=== PATIENT | female | born 1960 | race Hispanic/Latino ===

== ENCOUNTER 2018-12-02 05:12 | Emergency (ER) | payer MEDICARE | END 2018-12-02 05:31 | disposition home or self-care (01) | LOC: EDH 05:12 | DX: Z02.83 Encounter for blood-alcohol and blood-drug test (principal); F41.0 Panic disorder [episodic paroxysmal anxiety]; F32.9 Major depressive disorder, single episode, unspecified; E78.00 Pure hypercholesterolemia, unspecified; M81.0 Age-related osteoporosis without current pathological fracture; Z91.018 Allergy to other foods; Z88.0 Allergy status to penicillin; Z88.6 Allergy status to analgesic agent ==

== ENCOUNTER 2021-06-04 14:17 | Emergency (ER) | payer MEDICARE ==
[~2021-06-04] VITALS: Ht 162.6 cm; Wt 59.4 kg
[2021-06-04 17:35] VITALS: BP 170/91
[2021-06-04] MEDS ORDERED: ACET-66 PO (17:39)
[2021-06-04] MEDS ORDERED: CYCL5TAB PO (17:39)
[2021-06-04] MEDS ORDERED: ACETAMINOPHEN WITH CODEINE 1 TAB TAB PO ONE (18:00)
== END 2021-06-04 17:46 | disposition home or self-care (01) ==
LOC: EDH 14:17
DX: S40.011A Contusion of right shoulder, initial encounter (principal); Z88.0 Allergy status to penicillin; Z88.6 Allergy status to analgesic agent; W01.0XXA Fall on same level from slipping, tripping and stumbling without subsequent striking against object, initial encounter; Y93.89 Activity, other specified; Y92.89 Other specified places as the place of occurrence of the external cause; Y99.8 Other external cause status
CPT/HCPCS: 73030